=== PATIENT | male | born 1990 | race Caucasian/White ===

== ENCOUNTER 2017-01-22 21:37 | Emergency (ER) | payer OTHER ==
[~2017-01-22] VITALS: Ht 175.3 cm; Wt 76.4 kg
[~2017-01-22 21:37] MED LIST: NOCURR
[2017-01-22 22:20] VITALS: BP 139/67
[2017-01-22] MEDS ORDERED: HYDROCODONE/ACETAMINOPHEN 5-325 MG TABLET PO ONE (22:45)
[2017-01-22] MEDS ORDERED: IBUPROFEN 800 MG TABLET PO ONE (22:45)
== END 2017-01-22 23:00 | disposition home or self-care (01) ==
LOC: EMS 21:38
DX: K08.89 Other specified disorders of teeth and supporting structures (principal)
CPT/HCPCS: 99283